=== PATIENT | male | born 1940 | race Caucasian/White ===

== ENCOUNTER 2019-09-26 15:16 | Emergency (ER) | payer MEDICARE | END 2019-09-26 15:50 | disposition home or self-care (01) | LOC: NAV ERS 15:16 | DX: J06.9 Acute upper respiratory infection, unspecified (principal); I10 Essential (primary) hypertension; E78.5 Hyperlipidemia, unspecified; I48.91 Unspecified atrial fibrillation; Z87.891 Personal history of nicotine dependence; N40.0 Benign prostatic hyperplasia without lower urinary tract symptoms; Z79.899 Other long term (current) drug therapy | CPT/HCPCS: 99283 ==

== ENCOUNTER 2019-10-09 14:58 | Inpatient (IN) | payer MEDICARE ==
[2019-10-09] MEDS: Atorvastatin Calcium 10 MG TAB PO SCH (22:00)
[2019-10-09] MEDS: Metoprolol Tartrate 25 MG TAB PO SCH (22:00)
[2019-10-09] MEDS: Amoxicillin/Potassium Clav 875 MG TAB PO SCH (22:03)
[2019-10-10 05:48] LABS: #Basophils 0.1 thou/uL (0.0-0.2); #Eosinphils 0.3 thou/uL (0.0-0.7); #Monocytes 0.7 thou/uL (0.11-0.59); %Basophils 1.1 % (0.0-1.0); %Eosinophils 2.6 % (0.0-10.0); %Lymphocytes 8.6 % (21.0-51.0); %Monocytes 6.5 % (0.0-10.0); %Neutrophils 81.3 % (42.0-75.0); Hemoglobin 10.8 g/dL (14.0-18.0); Mean Corpuscular HGB CONC 33.8 g/dL (32.0-36.0); Mean Corpuscular Hemoglobin 33.3 pg (27.0-31.0); Mean Corpuscular Volume 98.4 fL (78.0-98.0); Mean Platelet Volume 7.9 fL (7.4-10.4); Platelet Count 333 thou/uL (130-400); Red Blood Cell (RBC) Count 3.23 mill/uL (4.70-6.10); White Blood Cell (WBC) Count 11.1 thou/uL (4.8-10.8)
[2019-10-10 06:08] LABS: ALT (SGPT) 25 U/L (8-55); AST (SGOT) 20 U/L (5-34); Albumin 2.8 g/dL (3.4-4.8); Alkaline Phosphatase 61 U/L (40-110); Anion Gap 14 mmol/L (10-20); BUN (Urea Nitrogen) 10 mg/dL (8.4-25.7); Bilirubin, Total 0.5 mg/dL (0.2-1.2); Calc. Creatinine Clearance 72 mL/min (70-130); Calcium 8.4 mg/dL (7.8-10.44); Carbon Dioxide 23 mmol/L (23-31); Chloride 111 mmol/L (98-107); Estimated GFR-MDRD 69; Globulin 3.1 g/dL (2.4-3.5); Glucose 99 mg/dL (83-110); Potassium 3.6 mmol/L (3.5-5.1); Protein, Total 5.9 g/dL (5.8-8.1); Sodium 144 mmol/L (136-145)
[2019-10-10] MEDS: Donepezil HCl 10 MG TAB PO SCH (08:45)
[2019-10-10] MEDS: Amoxicillin/Potassium Clav 875 MG TAB PO SCH ×2 (08:45→20:40)
[2019-10-10] MEDS: Hydrochlorothiazide 25 MG TAB PO SCH (08:45)
[2019-10-10] MEDS: Finasteride 5 MG TAB PO SCH (08:45)
[2019-10-10] MEDS: Metoprolol Tartrate 25 MG TAB PO SCH ×2 (08:46→20:40)
[2019-10-10] MEDS: Saccharomyces boulardii 250 MG CAP PO SCH (08:46)
[2019-10-10] MEDS: Aspirin 81 mg Enteric Coated Tablet PO SCH (08:46)
[2019-10-10] MEDS: Lisinopril 10 MG TAB PO SCH (08:48)
--- NOTE | 2019-10-10 08:54 | HP ---
LOCATION: Admission to the [facility]. HISTORY OF PRESENT ILLNESS: The patient is an 79-year-old white male, well known to myself with a long history of hypertension, atrial fibrillation, benign prostatic hypertrophy, and gradually progressive dementia, who presented to the emergency room at [facility] on September 26 with acute onset of nasal congestion, cough, and shortness of breath. The patient states he did have fever at home, subsequently found to have a left upper lobe pneumonia, and was admitted to [facility], where he deteriorated for several days, placed in the ICU, had extensive workup including COVID evaluation and was found only to have left upper lobe pneumonia, responded to broad-spectrum antibiotics and slowly improved but became significantly deconditioned and weak and more confused, worsening with dementia. He has been switched to oral antibiotics with Augmentin and levofloxacin, and has been off oxygen for several days, but has been unable to maintain ADLs and therefore is transferred to [facility] for monitoring his cardiopulmonary status while undergoing physical therapy. PAST MEDICAL HISTORY: As above mentioned is positive for hypertension, hyperlipidemia, benign prostatic hypertrophy, and atrial fibrillation. PAST SURGICAL HISTORY: Positive for appendectomy, pacemaker, and left lower lobe resection for tumor. SOCIAL HISTORY: He lives with his . He has not smoked in over 10 years. Previous nicotine abuse. He did not drink alcohol recently, but did drink several beers daily until he developed dementia several years ago. REVIEW OF SYSTEMS: CONSTITUTIONAL: Essentially negative but the patient is a very poor historian. He knows where he is. He knows his name and knows the provider, but cannot remember the events of his recent admission. HEENT: Denies any headaches, dizziness, change in vision or hearing, hoarseness, or dysphagia. PULMONARY: Denies any cough at this time. Recent left upper lobe pneumonia. Denies any chest pain or pleurisy. CARDIOVASCULAR: Denies chest pain, orthopnea, paroxysmal nocturnal dyspnea, or edema. GASTROINTESTINAL: Denies nausea, vomiting, diarrhea, constipation, or abdominal pain. GENITOURINARY: Has decreased stream and nocturia, but no dysuria. NEUROLOGIC: Denies localized numbness or weakness in arms or extremities. PHYSICAL EXAMINATION: GENERAL: The patient is an elderly white male, lying in bed, weak but in no distress. Oriented to person and to place, but not to time. VITAL SIGNS: Show him to have a blood pressure of 173/81, O2 saturation is 92% on room air, respirations 20, pulse 77, and afebrile. HEENT: Pupils are equal, round, and reactive to light and accommodation. Sclerae anicteric. Conjunctivae pale. Oral mucous membranes are well hydrated. NECK: Supple. There are no nodes or masses. JVP is not elevated. LUNGS: Show few diffuse rhonchi in the left upper lobe but no rales or wheezes. CARDIAC: Showed regular rhythm. No gallops or murmurs. ABDOMEN: Soft and nontender. No masses or organomegaly. SKIN/EXTREMITIES: Show no edema, clubbing, or cyanosis. NEUROLOGICAL: Intact. LABORATORY DATA: Pending. ASSESSMENT: 1. An 79-year-old white male with a history of recent left upper lobe pneumonia, resolving, now on oral antibiotics but no respiratory distress. 2. Aggressive Alzheimer dementia with exacerbation on recent admission. The patient is oriented only to person and place, not able to give history. 3. Deconditioning, not improving, not able to maintain ADLs and we will start on PT/OT. 4. Atrial fibrillation, sinus rhythm, now on metoprolol. We will obtain an EKG. 5. Hypertension, controlled to goal, on lisinopril. 6. Benign prostatic hypertrophy, stable, on finasteride and tamsulosin. PLAN: 1. Continue PT/OT. 2. Continue prehospitalization medications. 3. Obtain EKG, CBC, and comp met profile. 4. Continue to monitor for respiratory deterioration. Job ID: [id number]
[2019-10-10] MEDS ORDERED: FLU VACC QS2019-20(6MOS UP)/PF 60 MCG/0.5 ML SYRINGE IM ONE (09:00)
[2019-10-10] MEDS ORDERED: Prevnar 13-Val Conj/PF 0.5 ML SYRINGE IM ONE (09:00)
[2019-10-10] MEDS: Latanoprost 0.005% Ophth Soln 2.5 ml Bottle EA EYE SCH (16:33)
[2019-10-10] MEDS: Tamsulosin HCl 0.4 MG CAP PO SCH (16:33)
[2019-10-10] MEDS: Atorvastatin Calcium 10 MG TAB PO SCH (20:40)
[2019-10-11] MEDS: Amoxicillin/Potassium Clav 875 MG TAB PO SCH ×2 (09:22→21:18)
[2019-10-11] MEDS: Lisinopril 10 MG TAB PO SCH (09:23)
[2019-10-11] MEDS: Donepezil HCl 10 MG TAB PO SCH (09:23)
[2019-10-11] MEDS: Finasteride 5 MG TAB PO SCH (09:23)
[2019-10-11] MEDS: Hydrochlorothiazide 25 MG TAB PO SCH (09:23)
[2019-10-11] MEDS: Saccharomyces boulardii 250 MG CAP PO SCH (09:23)
[2019-10-11] MEDS: Aspirin 81 mg Enteric Coated Tablet PO SCH (09:23)
[2019-10-11] MEDS: Metoprolol Tartrate 25 MG TAB PO SCH ×2 (09:23→21:19)
[2019-10-11] MEDS: Tamsulosin HCl 0.4 MG CAP PO SCH (17:33)
[2019-10-11] MEDS: Latanoprost 0.005% Ophth Soln 2.5 ml Bottle EA EYE SCH (17:33)
--- NOTE | 2019-10-11 17:46 | PRG ---
DATE OF SERVICE: 10/10/2019 SUBJECTIVE: Mr. Angeles is sleeping, but arousable. He denies any questions or concerns. No family at bedside. OBJECTIVE: VITAL SIGNS: He is afebrile. Heart rate is 68, respirations 18, oxygen saturation 94% on room air, blood pressure 169/72. CARDIOVASCULAR: S1 and S2 plus. RESPIRATORY: Normal vesicular breath sounds. ABDOMEN: Soft, nontender. Bowel sounds heard all quadrants. EXTREMITIES: Without cyanosis or clubbing. LABORATORY DATA: White count is 11.1, H and H are 10.8 and 31.8. Sodium 144, potassium 3.6, BUN and creatinine are 10 and 1.03. IMPRESSION: 1. Resolving left upper lobe pneumonia. 2. Hypertension. 3. Dyslipidemia. 4. Benign prostatic hypertrophy. 5. Atrial fibrillation. 6. Deconditioning. PLAN: 1. Continue current medications. 2. Heart healthy diet. 3. Monitor heart rate and rhythm. 4. Monitor respiratory status. 5. Decubitus precautions. 6. Physical therapy. 7. Routine laboratory values. Job ID: [id number]
--- NOTE | 2019-10-11 17:58 | PRG ---
DATE OF SERVICE: 10/11/2019 SUBJECTIVE: Mr. Angeles is resting in bed. He denies any complaints. Nursing have noticed a rash to his back, to his inner thighs, and it is not itchy. There is no drainage. No vesicles. Looks more like heat rash. OBJECTIVE: VITAL SIGNS: He is afebrile. Heart rate is 67, respirations 16, oxygen saturation 94% on 1.5 L, and blood pressure 141/71. CARDIOVASCULAR: S1-S2 plus. RESPIRATORY: Normal vesicular breath sounds. ABDOMEN: Soft, nontender. Bowel sounds heard in all quadrants. EXTREMITIES: Without cyanosis or clubbing. SKIN: Does show a macular rash all over his back as well as the back of his legs and his inner thighs consistent with heat rash. CENTRAL NERVOUS SYSTEM: Generalized weakness, otherwise nonfocal. IMPRESSION: 1. Acute hypoxemic respiratory failure. 2. Resolving pneumonitis. 3. Hypertension. 4. Dyslipidemia. 5. Benign prostatic hypertrophy. 6. Miliary rash. PLAN: 1. Continue current medications. 2. Heart-healthy diet. 3. Monitor heart rate and rhythm. 4. Monitor respiratory status and titrate oxygen. 5. Nystatin powder. 6. Reposition the patient. 7. Recheck BMP and CBC in the morning. 8. Dr. Nevin fernandez [facility]. Job ID: [id number]
[2019-10-11] MEDS: Nystatin Cream 15 GM TUBE TOP SCH (21:18)
[2019-10-11] MEDS: Atorvastatin Calcium 10 MG TAB PO SCH (21:18)
[2019-10-12 05:43] LABS: #Basophils 0.1 thou/uL (0.0-0.2); #Eosinphils 0.4 thou/uL (0.0-0.7); #Lymphocytes 0.6 thou/uL (1.20-3.40); #Monocytes 0.7 thou/uL (0.11-0.59); #Neutrophils 7.7 thou/uL (1.40-6.50); %Basophils 1.2 % (0.0-1.0); %Eosinophils 3.9 % (0.0-10.0); %Lymphocytes 6.7 % (21.0-51.0); %Monocytes 7.2 % (0.0-10.0); Hemoglobin 10.6 g/dL (14.0-18.0); Mean Corpuscular HGB CONC 33.5 g/dL (32.0-36.0); Mean Corpuscular Hemoglobin 32.9 pg (27.0-31.0); Mean Corpuscular Volume 98.1 fL (78.0-98.0); Mean Platelet Volume 7.6 fL (7.4-10.4); Platelet Count 387 thou/uL (130-400); RBC Distribution Width 11.8 % (11.5-14.5); Red Blood Cell (RBC) Count 3.22 mill/uL (4.70-6.10); White Blood Cell (WBC) Count 9.5 thou/uL (4.8-10.8)
[2019-10-12 05:57] LABS: Anion Gap 14 mmol/L (10-20); BUN (Urea Nitrogen) 10 mg/dL (8.4-25.7); Calc. Creatinine Clearance 74 mL/min (70-130); Calcium 8.5 mg/dL (7.8-10.44); Carbon Dioxide 27 mmol/L (23-31); Chloride 108 mmol/L (98-107); Estimated GFR-MDRD 72; Glucose 112 mg/dL (83-110); Potassium 3.5 mmol/L (3.5-5.1); Sodium 145 mmol/L (136-145)
[2019-10-12] MEDS: Aspirin 81 mg Enteric Coated Tablet PO SCH (08:59)
[2019-10-12] MEDS: Donepezil HCl 10 MG TAB PO SCH (09:00)
[2019-10-12] MEDS: Lisinopril 10 MG TAB PO SCH (09:00)
[2019-10-12] MEDS: Metoprolol Tartrate 25 MG TAB PO SCH ×2 (09:00→21:00)
[2019-10-12] MEDS: Saccharomyces boulardii 250 MG CAP PO SCH (09:00)
[2019-10-12] MEDS: Hydrochlorothiazide 25 MG TAB PO SCH (09:00)
[2019-10-12] MEDS: Finasteride 5 MG TAB PO SCH (09:00)
[2019-10-12] MEDS: Amoxicillin/Potassium Clav 875 MG TAB PO SCH ×2 (09:00→21:00)
[2019-10-12] MEDS: Nystatin Cream 15 GM TUBE TOP SCH ×2 (09:12→21:31)
[2019-10-12 11:01] VITALS: BMI 29.6
--- NOTE | 2019-10-12 16:29 | PRG ---
DATE OF SERVICE: 10/12/2019 SUBJECTIVE: The patient lying in the bed, awake and alert, but appear somewhat confused, although he is oriented to person and place and does recognize the physician. He states that he has been cooperating with therapy, but does appear to be somewhat distant in his responses. OBJECTIVE: VITAL SIGNS: His vital signs show a temperature of 96.6, pulse 66, respirations 18, O2 saturations 94% on room air, and blood pressure 139/72. LUNGS: Clear. CARDIAC: Shows regular rhythm. No gallops or murmurs. ABDOMEN: Soft and nontender. SKIN AND EXTREMITIES: No edema, clubbing, or cyanosis. LABORATORY DATA: White count is 9500, hematocrit 31, and hemoglobin 10. Sodium 144, potassium 3.5, chloride 108, bicarb 27, BUN 10, creatinine 1.0, and glucose 112. ASSESSMENT: 1. Resolving pneumonia. 2. Increased dementia with possible superimposed delirium from recent hospitalization, still not back to baseline. 3. History of atrial fibrillation, now cardioverted to sinus rhythm and maintained on metoprolol 25 twice daily. 4. Benign prostatic hypertrophy, stable with incontinence and diaper. PLAN: 1. Continue PT, OT. 2. Continue to monitor vital signs closely. 3. Continue to stress oral intake. 4. Continue to monitor for recurrent infection or deterioration of cardiopulmonary status. Job ID: [id number]
[2019-10-12] MEDS: Latanoprost 0.005% Ophth Soln 2.5 ml Bottle EA EYE SCH (17:16)
[2019-10-12] MEDS: Tamsulosin HCl 0.4 MG CAP PO SCH (17:16)
[2019-10-12] MEDS: Atorvastatin Calcium 10 MG TAB PO SCH (21:00)
[2019-10-13] MEDS: Nystatin Cream 15 GM TUBE TOP SCH ×2 (09:16→20:58)
[2019-10-13] MEDS: Aspirin 81 mg Enteric Coated Tablet PO SCH (09:16)
[2019-10-13] MEDS: Finasteride 5 MG TAB PO SCH (09:16)
[2019-10-13] MEDS: Saccharomyces boulardii 250 MG CAP PO SCH (09:17)
[2019-10-13] MEDS: Lisinopril 10 MG TAB PO SCH (09:17)
[2019-10-13] MEDS: Amlodipine 5 MG TAB PO SCH (09:19)
[2019-10-13] MEDS: Metoprolol Tartrate 25 MG TAB PO SCH ×2 (09:20→20:58)
[2019-10-13] MEDS: Donepezil HCl 10 MG TAB PO SCH (09:21)
[2019-10-13] MEDS: Hydrochlorothiazide 25 MG TAB PO SCH (09:21)
[2019-10-13] MEDS: Amoxicillin/Potassium Clav 875 MG TAB PO SCH ×2 (09:29→20:58)
--- NOTE | 2019-10-13 13:17 | PRG ---
DATE OF SERVICE: 10/13/2019 SUBJECTIVE: The patient is awake, more alert, cooperating somewhat with therapy, is getting stronger, but is still having significant cognitive deficits decreasing his improvement. OBJECTIVE: VITAL SIGNS: Shows his blood pressure is 147/74, O2 saturation is 93% on room air, pulse is 92, afebrile. LUNGS: Clear. CARDIAC: Shows regular rhythm. ABDOMEN: Soft and nontender. SKIN AND EXTREMITIES: Displayed no edema, clubbing, or cyanosis. ASSESSMENT: 1. Resolving pneumonia. 2. Improving deconditioning. 3. Persistent Alzheimer's with hospital delirium, superimposed, appears to be slightly improved, but still significant. PLAN: 1. Continue PT and OT. 2. Continue to monitor cognitive deficits. 3. Continue to monitor atrial fibrillation and recurrence is in sinus rhythm. 4. Continue to monitor vital signs and blood pressure control. Job ID: [id number]
[2019-10-13] MEDS: Tamsulosin HCl 0.4 MG CAP PO SCH (17:19)
[2019-10-13] MEDS: Latanoprost 0.005% Ophth Soln 2.5 ml Bottle EA EYE SCH (17:19)
[2019-10-13] MEDS: Atorvastatin Calcium 10 MG TAB PO SCH (20:58)
[2019-10-14] MEDS: Lisinopril 20 MG TAB PO SCH (08:29)
[2019-10-14] MEDS: Hydrochlorothiazide 25 MG TAB PO SCH (08:30)
[2019-10-14] MEDS: Amlodipine 5 MG TAB PO SCH (08:30)
[2019-10-14] MEDS: Saccharomyces boulardii 250 MG CAP PO SCH (08:30)
[2019-10-14] MEDS: Amoxicillin/Potassium Clav 875 MG TAB PO SCH ×2 (08:30→20:14)
[2019-10-14] MEDS: Finasteride 5 MG TAB PO SCH (08:31)
[2019-10-14] MEDS: Aspirin 81 mg Enteric Coated Tablet PO SCH (08:31)
[2019-10-14] MEDS: Nystatin Cream 15 GM TUBE TOP SCH ×2 (08:31→20:14)
[2019-10-14] MEDS: Donepezil HCl 10 MG TAB PO SCH (08:31)
[2019-10-14] MEDS: Metoprolol Tartrate 25 MG TAB PO SCH ×2 (08:31→20:14)
[2019-10-14] MEDS ORDERED: Fluconazole 100 MG TAB PO SCH (10:15)
[2019-10-14] MEDS: Nystatin Powder 15 GM BOT TOP PRN (10:29)
--- NOTE | 2019-10-14 15:48 | PRG ---
DATE OF SERVICE: 10/14/2019 SUBJECTIVE: The patient is lying in bed, alert, oriented to person and possibly place, has been cooperating with therapy, rested well last night. No distress. OBJECTIVE: VITAL SIGNS: Blood pressure 135/75, pulse 87, respirations 19, O2 saturation 95% on room air, blood pressure 153/70. LUNGS: Clear. CARDIAC: Showed regular rhythm. ABDOMEN: Soft, nontender. NEUROLOGICAL: Shows no focal findings. ASSESSMENT: 1. Resolving pneumonia. 2. Chronic dementia with exacerbation with recent hospitalization. 3. Deconditioning, improving daily. PLAN: 1. Continue PT, OT. 2. Discussed possible home care with who wish to take him home. Positive dementia. 3. Continue to monitor sinus rhythm as he has had atrial fibrillation in the past. 4. Continue to monitor vital signs. Job ID: [id number]
[2019-10-14] MEDS: Tamsulosin HCl 0.4 MG CAP PO SCH (17:40)
[2019-10-14] MEDS: Latanoprost 0.005% Ophth Soln 2.5 ml Bottle EA EYE SCH (17:40)
[2019-10-14] MEDS: Atorvastatin Calcium 10 MG TAB PO SCH (20:14)
[2019-10-15] MEDS: Nystatin Cream 15 GM TUBE TOP SCH ×2 (08:43→21:13)
[2019-10-15] MEDS: Fluconazole 100 MG TAB PO SCH (08:44)
[2019-10-15] MEDS: Saccharomyces boulardii 250 MG CAP PO SCH (08:44)
[2019-10-15] MEDS: Amlodipine 5 MG TAB PO SCH (08:44)
[2019-10-15] MEDS: Donepezil HCl 10 MG TAB PO SCH (08:44)
[2019-10-15] MEDS: Amoxicillin/Potassium Clav 875 MG TAB PO SCH ×2 (08:44→21:13)
[2019-10-15] MEDS: Nystatin Powder 15 GM BOT TOP PRN ×2 (08:45→21:12)
[2019-10-15] MEDS: Finasteride 5 MG TAB PO SCH (08:45)
[2019-10-15] MEDS: Lisinopril 20 MG TAB PO SCH (08:45)
[2019-10-15] MEDS: Hydrochlorothiazide 25 MG TAB PO SCH (08:45)
[2019-10-15] MEDS: Metoprolol Tartrate 25 MG TAB PO SCH ×2 (08:45→21:13)
[2019-10-15] MEDS: Aspirin 81 mg Enteric Coated Tablet PO SCH (08:46)
[2019-10-15] MEDS: Acetaminophen 325 MG TAB PO PRN (13:47)
[2019-10-15] MEDS: Tamsulosin HCl 0.4 MG CAP PO SCH (17:29)
[2019-10-15] MEDS: Latanoprost 0.005% Ophth Soln 2.5 ml Bottle EA EYE SCH (17:29)
[2019-10-15] MEDS: Atorvastatin Calcium 10 MG TAB PO SCH (21:13)
[2019-10-16] MEDS: Aspirin 81 mg Enteric Coated Tablet PO SCH (08:39)
[2019-10-16] MEDS: Acetaminophen 325 MG TAB PO PRN (08:39)
[2019-10-16] MEDS: Saccharomyces boulardii 250 MG CAP PO SCH (08:40)
[2019-10-16] MEDS: Donepezil HCl 10 MG TAB PO SCH (08:40)
[2019-10-16] MEDS: Fluconazole 100 MG TAB PO SCH (08:41)
[2019-10-16] MEDS: Metoprolol Tartrate 25 MG TAB PO SCH ×2 (08:41→20:26)
[2019-10-16] MEDS: Hydrochlorothiazide 25 MG TAB PO SCH (08:41)
[2019-10-16] MEDS: Amlodipine 5 MG TAB PO SCH (08:41)
[2019-10-16] MEDS: Lisinopril 20 MG TAB PO SCH (08:42)
[2019-10-16] MEDS: Finasteride 5 MG TAB PO SCH (08:43)
[2019-10-16] MEDS: Nystatin Cream 15 GM TUBE TOP SCH ×2 (09:30→20:27)
[2019-10-16] MEDS: Latanoprost 0.005% Ophth Soln 2.5 ml Bottle EA EYE SCH (16:50)
[2019-10-16] MEDS: Tamsulosin HCl 0.4 MG CAP PO SCH (16:50)
--- NOTE | 2019-10-16 18:03 | PRG ---
DATE OF SERVICE: 10/15/2019 SUBJECTIVE: The patient lying in the bed, in no distress. Alert and cheerful, but appears to be somewhat confused and still unable to maintain ADLs such as dressing himself and is still requiring maximum assist to be fed. OBJECTIVE: VITAL SIGNS: Blood pressure 168/74, O2 sats 93% on room air, respirations 20, pulse 77, afebrile. LUNGS: Clear. CARDIAC: Showed regular rhythm. ABDOMEN: Soft, nontender. SKIN/EXTREMITIES: Showed no edema, clubbing, or cyanosis. NEUROLOGICAL: Intact. ASSESSMENT: 1. Resolving pneumonia with resolving rales and rhonchi. 2. Chronic dementia with severe exacerbation secondary to recent hospitalization. 3. Deconditioning, improving daily. 4. Atrial fibrillation converted to sinus rhythm and maintain. PLAN: 1. Continue PT, OT. 2. Discuss home care with , who will take him home. 3. Continue to monitor vital signs with therapy. 4. Continue to monitor for fall risk. Job ID: [id number]
[2019-10-16] MEDS: Atorvastatin Calcium 10 MG TAB PO SCH (20:26)
[2019-10-17] MEDS: Lisinopril 20 MG TAB PO SCH (10:31)
[2019-10-17] MEDS: Finasteride 5 MG TAB PO SCH (10:31)
[2019-10-17] MEDS: Saccharomyces boulardii 250 MG CAP PO SCH (10:31)
[2019-10-17] MEDS: Aspirin 81 mg Enteric Coated Tablet PO SCH (10:32)
[2019-10-17] MEDS: Amlodipine 5 MG TAB PO SCH (10:32)
[2019-10-17] MEDS: Hydrochlorothiazide 25 MG TAB PO SCH (10:32)
[2019-10-17] MEDS: Donepezil HCl 10 MG TAB PO SCH (10:32)
[2019-10-17] MEDS: Metoprolol Tartrate 25 MG TAB PO SCH ×2 (10:32→21:04)
[2019-10-17] MEDS: Nystatin Cream 15 GM TUBE TOP SCH ×2 (10:34→21:06)
[2019-10-17] MEDS: Tamsulosin HCl 0.4 MG CAP PO SCH (16:12)
[2019-10-17] MEDS: Latanoprost 0.005% Ophth Soln 2.5 ml Bottle EA EYE SCH (16:13)
[2019-10-17] MEDS: Atorvastatin Calcium 10 MG TAB PO SCH (21:04)
[2019-10-17] MEDS: risperiDONE 0.25 MG TAB PO PRN (21:04)
[2019-10-17] MEDS: Nystatin Powder 15 GM BOT TOP PRN (21:04)
[2019-10-18] MEDS: Amlodipine 5 MG TAB PO SCH (08:05)
[2019-10-18] MEDS: Saccharomyces boulardii 250 MG CAP PO SCH (08:06)
[2019-10-18] MEDS: Hydrochlorothiazide 25 MG TAB PO SCH (08:06)
[2019-10-18] MEDS: Donepezil HCl 10 MG TAB PO SCH (08:06)
[2019-10-18] MEDS: Finasteride 5 MG TAB PO SCH (08:06)
[2019-10-18] MEDS: Metoprolol Tartrate 25 MG TAB PO SCH ×2 (08:06→20:37)
[2019-10-18] MEDS: Lisinopril 20 MG TAB PO SCH (08:07)
[2019-10-18] MEDS: Nystatin Cream 15 GM TUBE TOP SCH ×2 (08:08→20:37)
[2019-10-18] MEDS: Aspirin 81 mg Enteric Coated Tablet PO SCH (08:08)
--- NOTE | 2019-10-18 11:46 | PRG ---
DATE OF SERVICE: 10/16/2019 SUBJECTIVE: The patient is somewhat agitated today, irritable especially at night. He is getting stronger, but is more confused and still having significant cognitive deficits. OBJECTIVE: VITAL SIGNS: Temperature is 99, pulse 97, respirations 20, O2 sats 97% on room air, blood pressure 156/70. LUNGS: Clear. CARDIAC: Shows regular rhythm. ABDOMEN: Soft, nontender. ASSESSMENT: 1. Resolving pneumonia. 2. Improving deconditioning. 3. Persistent exacerbation of dementia with hospital delirium and we will give 25 mg Seroquel tonight and monitor. PLAN: 1. Seroquel 25 mg at night. 2. Continue PT/OT. 3. Discuss discharge planning with . Job ID: [id number]
--- NOTE | 2019-10-18 11:52 | PRG ---
DATE OF SERVICE: 10/17/2019 SUBJECTIVE: The patient is very sedated this morning. Does not awaken easily. Has not been eating well because of pocketing food. OBJECTIVE: VITAL SIGNS: Have remained stable with temperature 97, pulse 83, respirations 20, O2 sats 97% on room air, blood pressure 168/72. ASSESSMENT: 1. Increased sedation, most likely due to Seroquel. 2. Stable hypertension. 3. Resolving pneumonia. 4. Stable BPH. No evidence urinary tract infection. 5. Converted atrial fibrillation, still in sinus rhythm. PLAN: Discontinue Seroquel. Try Risperdal 0.5 mg tonight if agitation only at night. Repeat labs in the a.m. Job ID: [id number]
[2019-10-18 15:28] LABS: #Basophils 0.1 thou/uL (0.0-0.2); #Eosinphils 0.3 thou/uL (0.0-0.7); #Lymphocytes 1.3 thou/uL (1.20-3.40); #Monocytes 0.4 thou/uL (0.11-0.59); #Neutrophils 4.8 thou/uL (1.40-6.50); %Basophils 0.7 % (0.0-1.0); %Eosinophils 4.1 % (0.0-10.0); %Lymphocytes 19.1 % (21.0-51.0); %Monocytes 6.3 % (0.0-10.0); %Neutrophils 69.8 % (42.0-75.0); Hemoglobin 11.5 g/dL (14.0-18.0); Mean Corpuscular HGB CONC 32.6 g/dL (32.0-36.0); Mean Corpuscular Hemoglobin 31.9 pg (27.0-31.0); Mean Corpuscular Volume 97.8 fL (78.0-98.0); Mean Platelet Volume 6.6 fL (7.4-10.4); Platelet Count 428 thou/uL (130-400); RBC Distribution Width 11.9 % (11.5-14.5); Red Blood Cell (RBC) Count 3.62 mill/uL (4.70-6.10); White Blood Cell (WBC) Count 6.9 thou/uL (4.8-10.8)
[2019-10-18 15:55] LABS: ALT (SGPT) 22 U/L (8-55); AST (SGOT) 24 U/L (5-34); Alkaline Phosphatase 60 U/L (40-110); Anion Gap 13 mmol/L (10-20); BUN (Urea Nitrogen) 15 mg/dL (8.4-25.7); Bilirubin, Total 0.3 mg/dL (0.2-1.2); Calc. Creatinine Clearance 59 mL/min (70-130); Calcium 8.9 mg/dL (7.8-10.44); Carbon Dioxide 29 mmol/L (23-31); Chloride 105 mmol/L (98-107); Estimated GFR-MDRD 56; Globulin 3.5 g/dL (2.4-3.5); Glucose 106 mg/dL (83-110); Potassium 4.1 mmol/L (3.5-5.1); Protein, Total 6.5 g/dL (5.8-8.1); Sodium 143 mmol/L (136-145)
[2019-10-18] MEDS: Tamsulosin HCl 0.4 MG CAP PO SCH (16:38)
[2019-10-18] MEDS: Latanoprost 0.005% Ophth Soln 2.5 ml Bottle EA EYE SCH (16:41)
[2019-10-18 19:01] LABS: Bilirubin Negative (Negative); Blood, Urine Moderate (Negative); Clarity Clear (Clear); Glucose, Urine (Dipstick) Negative (Negative); Leukocyte Negative (Negative); Nitrite Negative (Negative); Protein, Urine (Dipstick) Negative (Neg-Trace); Urobilinogen 0.2 mg/dL (Less than 2)
[2019-10-18 19:10] LABS: Urine Culture Reflex No No
[2019-10-18 19:11] LABS: Bacteria/HPF None Seen HPF (None Seen); Squamous Epithelial None Seen HPF (0-3); WBC/HPF 0-3 HPF (0-3)
[2019-10-18] MEDS: Atorvastatin Calcium 10 MG TAB PO SCH (20:36)
[2019-10-18] MEDS: Nystatin Powder 15 GM BOT TOP PRN (20:37)
[2019-10-18] MEDS: risperiDONE 0.25 MG TAB PO PRN (20:37)
[2019-10-19] MEDS: Saccharomyces boulardii 250 MG CAP PO SCH (08:21)
[2019-10-19] MEDS: Finasteride 5 MG TAB PO SCH (08:21)
[2019-10-19] MEDS: Metoprolol Tartrate 25 MG TAB PO SCH ×2 (08:21→21:22)
[2019-10-19] MEDS: Amlodipine 5 MG TAB PO SCH (08:21)
[2019-10-19] MEDS: Lisinopril 20 MG TAB PO SCH (08:22)
[2019-10-19] MEDS: Aspirin 81 mg Enteric Coated Tablet PO SCH (08:22)
[2019-10-19] MEDS: Hydrochlorothiazide 25 MG TAB PO SCH (08:22)
[2019-10-19] MEDS: Donepezil HCl 10 MG TAB PO SCH (08:22)
[2019-10-19] MEDS: Nystatin Cream 15 GM TUBE TOP SCH ×2 (08:23→21:22)
--- NOTE | 2019-10-19 16:04 | PRG ---
DATE OF SERVICE: 10/18/2019 SUBJECTIVE: The patient is awake, somewhat sedated, but in no distress. Slept well through the night. Has not been agitated and has been eating, although has required being fed. Has not had any therapy today. OBJECTIVE: VITAL SIGNS: Show his blood pressure is 132/79, temperature is 98, pulse 93, respirations 20, O2 saturations 92% on room air. LUNGS: Clear. CARDIAC: Showed regular rhythm. ABDOMEN: Soft and nontender. SKIN/EXTREMITIES: Display no edema, clubbing, or cyanosis. ASSESSMENT: 1. Persistent dementia with superimposed hospital delirium and agitation. Controlled with risperidone, but with inability to maintain activities of daily living. 2. Resolving pneumonia. 3. Atrial fibrillation, resolved. 4. Hypertension, controlled to goal. PLAN: Continue to monitor. Ability to maintain ADLs and control of agitation with Risperdal. Job ID: [id number]
[2019-10-19] MEDS: Tamsulosin HCl 0.4 MG CAP PO SCH (16:23)
[2019-10-19] MEDS: Latanoprost 0.005% Ophth Soln 2.5 ml Bottle EA EYE SCH (16:26)
[2019-10-19] MEDS: Atorvastatin Calcium 10 MG TAB PO SCH (21:22)
[2019-10-19] MEDS: risperiDONE 0.25 MG TAB PO PRN (21:22)
[2019-10-20] MEDS: Saccharomyces boulardii 250 MG CAP PO SCH (08:36)
[2019-10-20] MEDS: Metoprolol Tartrate 25 MG TAB PO SCH ×2 (08:36→21:01)
[2019-10-20] MEDS: Hydrochlorothiazide 25 MG TAB PO SCH (08:36)
[2019-10-20] MEDS: Donepezil HCl 10 MG TAB PO SCH (08:36)
[2019-10-20] MEDS: Finasteride 5 MG TAB PO SCH (08:36)
[2019-10-20] MEDS: Amlodipine 5 MG TAB PO SCH (08:36)
[2019-10-20] MEDS: Lisinopril 20 MG TAB PO SCH (08:37)
[2019-10-20] MEDS: Aspirin 81 mg Enteric Coated Tablet PO SCH (08:37)
[2019-10-20] MEDS: Nystatin Cream 15 GM TUBE TOP SCH ×2 (08:38→21:00)
[2019-10-20] MEDS: Latanoprost 0.005% Ophth Soln 2.5 ml Bottle EA EYE SCH (17:23)
[2019-10-20] MEDS: Atorvastatin Calcium 10 MG TAB PO SCH (21:00)
[2019-10-20] MEDS: risperiDONE 0.25 MG TAB PO PRN (21:01)
[2019-10-21] MEDS: Saccharomyces boulardii 250 MG CAP PO SCH (09:55)
[2019-10-21] MEDS: Acetaminophen 325 MG TAB PO PRN (09:55)
[2019-10-21] MEDS: Finasteride 5 MG TAB PO SCH (09:55)
[2019-10-21] MEDS: Lisinopril 20 MG TAB PO SCH (09:55)
[2019-10-21] MEDS: Aspirin 81 mg Enteric Coated Tablet PO SCH (09:56)
[2019-10-21] MEDS: Nystatin Cream 15 GM TUBE TOP SCH ×2 (09:56→22:02)
[2019-10-21] MEDS: Donepezil HCl 10 MG TAB PO SCH (09:56)
[2019-10-21] MEDS: Metoprolol Tartrate 25 MG TAB PO SCH ×2 (09:56→22:02)
[2019-10-21 13:52] LABS: #Basophils 0.1 thou/uL (0.0-0.2); #Eosinphils 0.4 thou/uL (0.0-0.7); #Lymphocytes 1.3 thou/uL (1.20-3.40); #Monocytes 0.5 thou/uL (0.11-0.59); #Neutrophils 4.2 thou/uL (1.40-6.50); %Basophils 0.8 % (0.0-1.0); %Eosinophils 5.7 % (0.0-10.0); %Lymphocytes 19.7 % (21.0-51.0); %Monocytes 8.3 % (0.0-10.0); %Neutrophils 65.5 % (42.0-75.0); Hemoglobin 12.2 g/dL (14.0-18.0); Mean Corpuscular HGB CONC 33.5 g/dL (32.0-36.0); Mean Corpuscular Hemoglobin 32.6 pg (27.0-31.0); Mean Corpuscular Volume 97.4 fL (78.0-98.0); Mean Platelet Volume 6.6 fL (7.4-10.4); Platelet Count 393 thou/uL (130-400); RBC Distribution Width 12.2 % (11.5-14.5); Red Blood Cell (RBC) Count 3.73 mill/uL (4.70-6.10); White Blood Cell (WBC) Count 6.4 thou/uL (4.8-10.8)
[2019-10-21 14:06] LABS: Anion Gap 14 mmol/L (10-20); BUN (Urea Nitrogen) 22 mg/dL (8.4-25.7); Calc. Creatinine Clearance 52 mL/min (70-130); Carbon Dioxide 29 mmol/L (23-31); Chloride 105 mmol/L (98-107); Estimated GFR-MDRD 48; Glucose 109 mg/dL (83-110); Potassium 3.7 mmol/L (3.5-5.1); Sodium 144 mmol/L (136-145)
[2019-10-21] MEDS: Latanoprost 0.005% Ophth Soln 2.5 ml Bottle EA EYE SCH (16:36)
[2019-10-21 17:15] LABS: Bilirubin Negative (Negative); Blood, Urine Negative (Negative); Clarity Clear (Clear); Glucose, Urine (Dipstick) Negative (Negative); Leukocyte Negative (Negative); Nitrite Negative (Negative); Protein, Urine (Dipstick) Negative (Neg-Trace); Urobilinogen 0.2 mg/dL (Less than 2)
[2019-10-21 17:42] LABS: Urine Culture Reflex No No
[2019-10-21 17:43] LABS: RBC/HPF 0-3 HPF (0-3); WBC/HPF None Seen HPF (0-3)
[2019-10-21 17:44] LABS: Bacteria/HPF None Seen HPF (None Seen); Squamous Epithelial 0-3 HPF (0-3)
[2019-10-21] MEDS: Atorvastatin Calcium 10 MG TAB PO SCH (22:01)
[2019-10-21] MEDS: Divalproex Sodium 125 mg Sprinkle Capsule PO PRN (22:01)
[2019-10-21] MEDS: Amlodipine 5 MG TAB PO SCH (22:02)
--- NOTE | 2019-10-22 06:29 | PRG ---
DATE OF SERVICE: 10/21/2019 SUBJECTIVE: The patient is awake, but confused. He appears not to know the physician, sedated all morning, but has returned back to his confused status at this time. OBJECTIVE: VITAL SIGNS: Temperature is 98, pulse 82, respirations 18, O2 sats 94% on room air, blood pressure 142/64. LUNGS: Clear. CARDIAC: Regular rhythm. ABDOMEN: Soft, nontender. LABORATORY DATA: White count 6400, hematocrit 36, hemoglobin 12. Sodium 144, potassium 3.7, chloride 105, bicarb 29, BUN 22, creatinine 1.43. Urinalysis within normal limits. ASSESSMENT: 1. Persistent dementia, superimposed hospital delirium with sedation with major tranquilizers and we will discontinue Risperdal and may try Depakote Sprinkle tonight if agitated. 2. Dehydration, appeared to be worsening with decreasing oral intake and increasing prerenal azotemia. 3. Hypertension, controlled to goal. 4. Pneumonia, resolved. PLAN: 1. Discontinue Risperdal. 2. Start Depakote 125 mg at night as needed for agitation. 3. Continue to stress oral intake and monitor . Prognosis is deteriorating, we will discuss with . Job ID: [id number]
--- NOTE | 2019-10-22 06:31 | PRG ---
DATE OF SERVICE: 10/20/2019 SUBJECTIVE: The patient slept well through the night, somewhat sedated this morning but did eat and did cooperate somewhat in therapy, but still very confused. OBJECTIVE: VITAL SIGNS: Temperature 97, pulse 81, respirations 20, O2 sats 94% on room air. LUNGS: Clear. CARDIAC: Showed regular rhythm. ABDOMEN: Soft, nontender. SKIN/EXTREMITIES: Showed no edema. GENERAL: The patient is awake, but confused, occasionally agitated, unable to feed or himself, and a 2-person assist. ASSESSMENT: 1. Resolving pneumonia. 2. Increasing dementia with superimposed delirium, appears to not be improving, with agitation at night with sedation . 3. Atrial fibrillation, resolved. 4. Hypertension, controlled to goal. PLAN: 1. Continue to monitor on low dose Risperdal 0.5 mg at night as needed and hopefully will stabilize. 2. Discuss progression of dementia with and possibly see if there is need for assistance with post hospital care. Job ID: [id number]
[2019-10-22] MEDS: Saccharomyces boulardii 250 MG CAP PO SCH (10:21)
[2019-10-22] MEDS: Lisinopril 20 MG TAB PO SCH (10:21)
[2019-10-22] MEDS: Finasteride 5 MG TAB PO SCH (10:22)
[2019-10-22] MEDS: Metoprolol Tartrate 25 MG TAB PO SCH ×2 (10:22→21:25)
[2019-10-22] MEDS: Nystatin Cream 15 GM TUBE TOP SCH ×2 (10:22→21:24)
[2019-10-22] MEDS: Donepezil HCl 10 MG TAB PO SCH (10:22)
[2019-10-22] MEDS: Aspirin 81 mg Enteric Coated Tablet PO SCH (10:24)
[2019-10-22] MEDS: Latanoprost 0.005% Ophth Soln 2.5 ml Bottle EA EYE SCH (16:19)
[2019-10-22] MEDS: Amlodipine 5 MG TAB PO SCH (21:25)
[2019-10-22] MEDS: Divalproex Sodium 125 mg Sprinkle Capsule PO PRN (21:25)
[2019-10-22] MEDS: Atorvastatin Calcium 10 MG TAB PO SCH (21:25)
[2019-10-23] MEDS: Metoprolol Tartrate 25 MG TAB PO SCH ×2 (10:06→20:50)
[2019-10-23] MEDS: Finasteride 5 MG TAB PO SCH (10:07)
[2019-10-23] MEDS: Nystatin Cream 15 GM TUBE TOP SCH ×3 (10:07→22:07)
[2019-10-23] MEDS: Saccharomyces boulardii 250 MG CAP PO SCH (10:07)
[2019-10-23] MEDS: Aspirin 81 mg Enteric Coated Tablet PO SCH (10:07)
[2019-10-23] MEDS: Donepezil HCl 10 MG TAB PO SCH (10:07)
[2019-10-23] MEDS: Lisinopril 20 MG TAB PO SCH (10:07)
[2019-10-23 16:23] LABS: #Basophils 0.1 thou/uL (0.0-0.2); #Eosinphils 0.3 thou/uL (0.0-0.7); #Lymphocytes 1.4 thou/uL (1.20-3.40); #Monocytes 0.7 thou/uL (0.11-0.59); #Neutrophils 6.4 thou/uL (1.40-6.50); %Basophils 1.1 % (0.0-1.0); %Eosinophils 3.4 % (0.0-10.0); %Lymphocytes 15.5 % (21.0-51.0); %Monocytes 7.8 % (0.0-10.0); %Neutrophils 72.3 % (42.0-75.0); Hemoglobin 12.5 g/dL (14.0-18.0); Mean Corpuscular HGB CONC 32.1 g/dL (32.0-36.0); Mean Corpuscular Hemoglobin 31.7 pg (27.0-31.0); Mean Corpuscular Volume 98.7 fL (78.0-98.0); Mean Platelet Volume 7.7 fL (7.4-10.4); Platelet Count 382 thou/uL (130-400); RBC Distribution Width 12.1 % (11.5-14.5); Red Blood Cell (RBC) Count 3.95 mill/uL (4.70-6.10); White Blood Cell (WBC) Count 8.9 thou/uL (4.8-10.8)
[2019-10-23 16:42] LABS: Anion Gap 14 mmol/L (10-20); BUN (Urea Nitrogen) 32 mg/dL (8.4-25.7); Calc. Creatinine Clearance 37 mL/min (70-130); Calcium 9.3 mg/dL (7.8-10.44); Carbon Dioxide 28 mmol/L (23-31); Chloride 109 mmol/L (98-107); Estimated GFR-MDRD 33; Glucose 137 mg/dL (83-110); Potassium 3.5 mmol/L (3.5-5.1); Sodium 147 mmol/L (136-145)
--- NOTE | 2019-10-23 17:21 | PRG ---
DATE OF SERVICE: 10/23/2019 SUBJECTIVE: The patient was sedated and unresponsive this morning, and had IV placed and labs drawn, but now is working with therapy this afternoon, although did not eat well even with his on the phone. OBJECTIVE: VITAL SIGNS: Blood pressure was 101/54, down to 85/51; pulse 62. LUNGS: Clear. CARDIAC: Showed regular rhythm. LABORATORY DATA: Showed white count 8900, hematocrit 39, hemoglobin 12. Sodium is 147, potassium 3.5, chloride 109, bicarb 28. BUN is up to 32 from 10 on admission, creatinine up to 1.8 from 1.03 on admission, with a GFR down to 33 from 69. ASSESSMENT: 1. Increased delirium and dementia, possibly drug effect from the Depakote. 2. Significant dehydration, decreased oral intake. 3. Hypertension, decreased on medications and dehydration. PLAN: 1. IV normal saline, a liter of bolus now. 2. Discontinue Depakote. 3. Order sitter. 4. Discontinue lisinopril and only order metoprolol 25 twice daily, and monitor vital signs, blood pressure. 5. Repeat BMP in the a.m. Job ID: [id number]
[2019-10-23] MEDS: Latanoprost 0.005% Ophth Soln 2.5 ml Bottle EA EYE SCH (17:32)
--- NOTE | 2019-10-23 18:02 | PRG ---
DATE OF SERVICE: 10/22/2019 SUBJECTIVE: The patient is sedated today, not eating well, though with no focal findings. He has had nurses attempted feeding. Not eating well. Did receive risperidone last night. OBJECTIVE: VITAL SIGNS: Temperature is 97.8, pulse rate 97, respirations are 19, O2 sats 94% on room air, and blood pressure is 129/64. LUNGS: Clear. CARDIAC: Showed regular rhythm. ABDOMEN: Soft and nontender. NEUROLOGIC: Shows no focal findings. The patient is a very sedated, minimally responsive, and pocketing his food. ASSESSMENT: 1. Dementia with superimposed delirium and possible superimposed drug effect, risperidone. Inability to maintain ADLs and will monitor airway safety. 2. Resolving pneumonia. 3. Atrial fibrillation, paroxysmal, resolved. 4. Hypertension, controlled to goal. PLAN: 1. Discontinue risperidone. Start on Depakote 125 as needed at night. 2. Continue to monitor oral intake and may need IV fluids. 3. Discuss with family. Job ID: [id number]
[2019-10-23] MEDS: Sodium Chloride 0.9% 1,000 ML IV SCH ×3 (18:53→22:05)
[2019-10-23] MEDS: Atorvastatin Calcium 10 MG TAB PO SCH (20:49)
[2019-10-23] MEDS: Acetaminophen 325 MG TAB PO PRN (20:49)
[2019-10-23] MEDS: Amlodipine 5 MG TAB PO SCH (21:57)
[2019-10-24 06:32] LABS: Anion Gap 10 mmol/L (10-20); BUN (Urea Nitrogen) 28 mg/dL (8.4-25.7); Calc. Creatinine Clearance 50 mL/min (70-130); Calcium 8.3 mg/dL (7.8-10.44); Carbon Dioxide 26 mmol/L (23-31); Chloride 115 mmol/L (98-107); Estimated GFR-MDRD 46; Potassium 3.4 mmol/L (3.5-5.1); Sodium 148 mmol/L (136-145)
[2019-10-24 06:36] LABS: Glucose 91 mg/dL (83-110)
[2019-10-24] MEDS: Metoprolol Tartrate 25 MG TAB PO SCH ×2 (08:56→22:00)
[2019-10-24] MEDS: Donepezil HCl 10 MG TAB PO SCH (08:56)
[2019-10-24] MEDS: Nystatin Powder 15 GM BOT TOP PRN (08:56)
[2019-10-24] MEDS: Saccharomyces boulardii 250 MG CAP PO SCH (08:56)
[2019-10-24] MEDS: Finasteride 5 MG TAB PO SCH (08:56)
[2019-10-24] MEDS: Aspirin 81 mg Enteric Coated Tablet PO SCH (08:57)
[2019-10-24] MEDS: Nystatin Cream 15 GM TUBE TOP SCH ×2 (08:57→22:01)
--- NOTE | 2019-10-24 15:14 | PRG ---
DATE OF SERVICE: 10/24/2019 SUBJECTIVE: The patient feels well, but is confused, only oriented to person, does not know . He is not eating, he is pocketing, but is in no respiratory distress. OBJECTIVE: VITAL SIGNS: Vital signs show him to have temperature 97, pulse 62, respirations 18, O2 saturations 92% on room air, and blood pressure 131/60. LUNGS: Clear. CARDIAC: Regular rhythm. ABDOMEN: Soft and nontender. LABORATORY DATA: Sodium is 148, potassium 3.4, chloride 115, bicarb , BUN 28, and creatinine 1.46. ASSESSMENT: Increasing dementia and delirium with decreased oral intake, weight loss, dehydration, with no evidence of sedation from medication. PLAN: After discussion with , we will consult hospice for weight loss and dehydration and end of life care. Job ID: [id number]
[2019-10-24] MEDS ORDERED: Sodium Chloride 0.9% 10 ML ONE (15:15)
--- NOTE | 2019-10-24 15:15 | PRG ---
DATE OF SERVICE: 10/23/2019 SUBJECTIVE: The patient feels agitated and sedated with medications. Has required a sitter. He is not eating at all. OBJECTIVE: VITAL SIGNS: Show blood pressure is 101/54, pulse 86, temperature 99, respirations 16. LUNGS: Clear. CARDIAC: Shows regular rhythm. LABORATORY DATA: Shows hematocrit 39, hemoglobin 12. Sodium 147, potassium 3.4, chloride 109, bicarb 28, BUN 32, creatinine 1.98, glucose 137, calcium 9.3. ASSESSMENT: Increasing dehydration secondary to poor oral intake secondary to increasing delirium and dementia. The patient has not received any medications that could have done this and he is slowly progressing. PLAN: Discuss palliative care and discharge home with family. Start IV normal saline at 75 an hour to monitor response. Job ID: [id number]
[2019-10-24] MEDS: Sodium Chloride 0.9% 1,000 ML IV SCH (15:23)
[2019-10-24] MEDS: Latanoprost 0.005% Ophth Soln 2.5 ml Bottle EA EYE SCH (16:50)
[2019-10-24] MEDS: Atorvastatin Calcium 10 MG TAB PO SCH (22:00)
[2019-10-24] MEDS: Amlodipine 5 MG TAB PO SCH (22:00)
[2019-10-25] MEDS: Sodium Chloride 0.9% 1,000 ML IV SCH ×2 (03:24→17:16)
[2019-10-25] MEDS: Saccharomyces boulardii 250 MG CAP PO SCH (09:08)
[2019-10-25] MEDS: Metoprolol Tartrate 25 MG TAB PO SCH ×2 (09:08→21:12)
[2019-10-25] MEDS: Donepezil HCl 10 MG TAB PO SCH (09:08)
[2019-10-25] MEDS: Finasteride 5 MG TAB PO SCH (09:08)
[2019-10-25] MEDS: Nystatin Cream 15 GM TUBE TOP SCH ×2 (09:08→21:13)
[2019-10-25] MEDS: Aspirin 81 mg Enteric Coated Tablet PO SCH (09:09)
[2019-10-25] MEDS: Latanoprost 0.005% Ophth Soln 2.5 ml Bottle EA EYE SCH (17:15)
[2019-10-25] MEDS: Atorvastatin Calcium 10 MG TAB PO SCH (21:12)
[2019-10-25] MEDS: Amlodipine 5 MG TAB PO SCH (21:12)
[2019-10-25] MEDS: Acetaminophen 325 MG TAB PO PRN (21:12)
[2019-10-26] MEDS: Sodium Chloride 0.9% 1,000 ML IV SCH (06:20)
[2019-10-26 07:53] VITALS: TEMP 96.8
[2019-10-26] MEDS: Donepezil HCl 10 MG TAB PO SCH (09:48)
[2019-10-26] MEDS: Finasteride 5 MG TAB PO SCH (09:48)
[2019-10-26] MEDS: Aspirin 81 mg Enteric Coated Tablet PO SCH (09:48)
[2019-10-26] MEDS: Saccharomyces boulardii 250 MG CAP PO SCH (09:49)
[2019-10-26] MEDS: Nystatin Cream 15 GM TUBE TOP SCH (09:49)
[2019-10-26] MEDS: Metoprolol Tartrate 25 MG TAB PO SCH (09:49)
[2019-10-26 15:26] VITALS: BP 151/72
== END 2019-10-26 14:50 | disposition hospice, home (50) | DRG 193 ==
LOC: NAV ACUTE 14:58
PROVIDERS: ADMIT Internal Medicine; ATTEND Internal Medicine
DX: J18.9 Pneumonia, unspecified organism (principal); J96.01 Acute respiratory failure with hypoxia; F02.81 Dementia in other diseases classified elsewhere, unspecified severity, with behavioral disturbance; F05 Delirium due to known physiological condition; I10 Essential (primary) hypertension; E78.5 Hyperlipidemia, unspecified; N40.0 Benign prostatic hyperplasia without lower urinary tract symptoms; I48.91 Unspecified atrial fibrillation; R21 Rash and other nonspecific skin eruption; G30.9 Alzheimer's disease, unspecified; R53.81 Other malaise; E86.0 Dehydration; T42.6X5A Adverse effect of other antiepileptic and sedative-hypnotic drugs, initial encounter; Z90.49 Acquired absence of other specified parts of digestive tract; Z95.0 Presence of cardiac pacemaker
CPT/HCPCS: 36415; 80048; 80053; 81001; 85025; 87086; J7050